=== PATIENT | male | born 1955 | race Caucasian/White ===

== ENCOUNTER → 2017-08-23 | Outpatient (CLI) | payer OTHER ==
--- NOTE | 2017-08-23 10:18 | RADRPT ---
EXAM DATE/TIME: 08/23/2017 09:54 [place] COMPARISON: No previous studies available for comparison. INDICATIONS : Cough. MEDICAL HISTORY : smoker SURGICAL HISTORY : part of right lung removed ENCOUNTER: Initial ACUITY: 1 day PAIN SCORE: 0/10 LOCATION: Bilateral chest FINDINGS: The exam demonstrates postsurgical changes in the right chest. There are 2 cerclage wires and pulmona ry sutures evident. There is no pneumothorax. The parenchyma demonstrates mild chronic interstitial c hanges but is otherwise clear. The heart is normal in size. The visualized osseous structures are grossly intact. CONCLUSION: 1. Post surgical changes in the right chest. 2. Mild chronic interstitial changes. No acute abnormality. Patrick Garibay MD on August 23, 2017 at 10:15 Board Certified Radiologist. This report was verified electronically.
--- NOTE | 2017-08-23 20:19 | EKG ---
Date Performed: 08/23/2017 Time Performed: 09:17:48 PTAGE: 62 years EKG: Sinus rhythm . Normal ECG NO PREVIOUS TRACING DOCTOR: Ole Redmond Interpretating Date/Time 08/23/2017 20:15:20
== END ==
LOC: HCAV 08:26
PROVIDERS: ATTEND Family Medicine
DX: Z13.6 Encounter for screening for cardiovascular disorders (principal); F17.200 Nicotine dependence, unspecified, uncomplicated
CPT/HCPCS: 71046; 93005